=== PATIENT | male | born 1985 | race Caucasian/White ===

== ENCOUNTER 2022-09-19 00:28 | Emergency (ER) | payer SELFPAY ==
[~2022-09-19] VITALS: Ht 185.4 cm; Wt 95.3 kg
[2022-09-19 00:41] VITALS: BP 122/78
--- NOTE | 2022-09-19 01:51 | NUR ---
PT WALKED OUT AND NOT LONGER WANT TO CONTINUE WITH TREATMENT. MD MADE AWARE
--- NOTE | 2022-09-19 02:10 | NUR ---
Patient eloped from facility. ER MD notified.
== END 2022-09-19 02:17 | disposition left against medical advice (07) ==
LOC: ER 00:31
DX: S61.210A Laceration without foreign body of right index finger without damage to nail, initial encounter (principal); W29.8XXA Contact with other powered hand tools and household machinery, initial encounter; Y93.89 Activity, other specified; Y92.89 Other specified places as the place of occurrence of the external cause; Y99.8 Other external cause status